=== PATIENT | male | born 1990 | race Caucasian/White ===

== ENCOUNTER 2018-11-06 00:53 | Emergency (ER) | payer OTHER ==
[~2018-11-06] VITALS: Ht 177.8 cm; Wt 114.3 kg
[2018-11-06 02:50] VITALS: BP 149/98
== END 2018-11-06 02:50 | disposition home or self-care (01) ==
LOC: ED 00:53
DX: S68.124A Partial traumatic metacarpophalangeal amputation of right ring finger, initial encounter (principal); W31.9XXA Contact with unspecified machinery, initial encounter; Y93.89 Activity, other specified; Y92.89 Other specified places as the place of occurrence of the external cause; Y99.8 Other external cause status
CPT/HCPCS: J2001; J3490; Q0092